=== PATIENT | female | born 1965 | race Caucasian/White ===

== ENCOUNTER 2018-05-18 07:43 | Day surgery (SDC) | payer OTHER ==
[2018-05-18 08:27] VITALS: BMI 24.6
[2018-05-18] MEDS ORDERED: Propofol 10 mg/ml Inj (20 ML) ONE ×2 (10:27→10:37)
[2018-05-18] MEDS ORDERED: Lidocaine Hydrochloride 5 ML INJ ONE (10:37)
[2018-05-18 11:12] VITALS: O2SAT 100
[2018-05-18 11:53] VITALS: BP 93/63; PULSE 69; RESP 19; TEMP 97
== END 2018-05-18 11:50 | disposition home or self-care (01) ==
LOC: C.ENDO 07:43
PROVIDERS: ATTEND Internal Medicine Gastroenterology
DX: Z12.11 Encounter for screening for malignant neoplasm of colon (principal); K64.8 Other hemorrhoids; Z79.899 Other long term (current) drug therapy
CPT/HCPCS: 45378; 84703; J2704